=== PATIENT | female | born 1985 | race Two or more races ===

== ENCOUNTER 2020-12-27 05:29 | Emergency (ER) | payer MEDICARE, SELFPAY ==
[2020-12-27] VITALS (11 sets, daily range): BP systolic 103–109; BP diastolic 63–94; PULSE 67–95; RESP 16–20; TEMP 36.6; O2SAT 99; BMI 37.9
--- NOTE | 2020-12-27 05:38 | EX.ED.VIS.PS ---
HPI <Dr. Moises Odom MD - Last Filed: 12/27/20 06:55> HPI - Psych History of Present Illness Chief Complaint: Mental Health Informant: patient and EMS Narrative Narrative: EMS brings this patient in at 5:30 AM saying that the police have been dealing with her all night. She has been walking the local streets, she apparently is from [place] she is unsure of how she got to [place] but at one point states that she knocked on heshyam's door and [facility] and came back down in [place]. She then states that she did not have shoes, and because of this they would not let her in to the homeless halfway here in [place]; what type of homeless shelters do you have here and [place]? She denies using any drugs. She gets sidetracked very easily, when asked about medical problems that she has been diagnosed with she quickly changes the subject to something else. She is demanding food and water since she is homeless, in addition to a wheelchair and a service dog. She states she was vaccinated against COVID-19 with the Pfizer vaccine, the last one was more than 2 weeks ago. PFSH <Dr. Moises Odom MD - Last Filed: 12/27/20 06:55> PFS unable to obtain Home Medications NK 12/27/20 [History Last Taken Unknown] Allergy/AdvReac Type Severity Reaction Status Date / Time No Known Allergies Allergy Verified 12/27/20 05:44 unable to obtain Social History (Updated 12/27/20 @ 05:[address] Moises Odom MD) Smoking Status: Unknown if ever smoked substance use type: does not use ROS <Dr. Moises Odom MD - Last Filed: 12/27/20 06:55> ROS ED Constitutional Constitutional ED: Denies chills or fever(s) Eyes Eyes: Denies change in vision or diplopia ENT ENT ED: Denies rhinorrhea or sore throat Cardiovascular Cardiovascular: Denies chest pain or palpitations Respiratory/Chest Respiratory/Chest: Denies cough or dyspnea Gastrointestinal Gastrointestinal: Denies abdominal pain, diarrhea, nausea or vomiting Genitourinary Genitourinary ED: Denies dysuria or hematuria Musculoskeletal Musculoskeletal: Denies back pain or neck pain Integumentary Denies abscess or rash Neurologic Neurologic: Denies headache(s), paresthesias or weakness Psychiatric Psychiatric: Reports abnormal sleep pattern; Denies homicidal ideation, suicidal ideation or suicidal thoughts EXAM <Dr. Moises Odom MD - Last Filed: 12/27/20 06:55> Physical Exam Const Vital Signs: 12/27/20 05:31 12/27/20 06:37 12/27/20 07:26 Temperature 97.9 F Temperature Source Temporal Pulse Rate 76 Respiratory Rate 18 16 16 Blood Pressure 104/94 H Blood Pressure Mean 97 Pulse Ox 99 Oxygen Delivery Method Room Air Room Air 12/27/20 08:36 12/27/20 09:00 12/27/20 10:00 Temperature Temperature Source Pulse Rate Respiratory Rate 16 17 16 Blood Pressure Blood Pressure Mean Pulse Ox Oxygen Delivery Method Room Air Room Air Room Air 12/27/20 13:00 12/27/20 15:00 Temperature Temperature Source Pulse Rate 95 Respiratory Rate 18 18 Blood Pressure 109/84 H Blood Pressure Mean 92 Pulse Ox 99 Oxygen Delivery Method Room Air Positive well nourished and well developed General Appearance ED: well developed and NAD HEENT Reports moist mucous membranes normocephalic and atraumatic Eyes PERRL and EOMs intact bilaterally General Eye ED: Negative for scleral icterus Neck no lymphadenopathy and supple General: Negative for tenderness Thyroid: thyroid normal; Negative for tender Resp normal respiratory effort and clear to auscultation bilaterally Cardio no murmurs Rate: regular rate Rhythm: regular rhythm GI non-tender and non-distended Auscultation: normoactive bowel sounds Palpation: soft Back/Spine no CVA tenderness and normal ROM Extremity normal to inspection General Extremety ED: Negative for edema General Extremity: Negative for edema Neuro oriented x3, CN's II-XII intact bilaterally, no sensory deficits noted and gait normal Sensorium / Orientation: alert Motor Exam: strength 5/5 throughout Psych cooperative, activity/motor behavior normal and denies homicidal ideation Activity / Motor Behavior: appropriate eye contact Speech: loud Mood & Affect: labile affect Thought Process: flight of ideas, loose associations, tangential and other Don't leave me, nurses! I'm not ready to go to [facility]! Thought Content: suicidality and delusion(s) Delusional Thought Content Details: Positive for other (Abraham/Andraden) Insight: questionable Skin Lesions: no lesions Rashes: no rashes <Dr. Tu Marley, - Last Filed: 12/27/20 16:30> Physical Exam Const Vital Signs: 12/27/20 05:31 12/27/20 06:37 12/27/20 07:26 Temperature 97.9 F Temperature Source Temporal Pulse Rate 76 Respiratory Rate 18 16 16 Blood Pressure 104/94 H Blood Pressure Mean 97 Pulse Ox 99 Oxygen Delivery Method Room Air Room Air 12/27/20 08:36 12/27/20 09:00 12/27/20 10:00 Temperature Temperature Source Pulse Rate Respiratory Rate 16 17 16 Blood Pressure Blood Pressure Mean Pulse Ox Oxygen Delivery Method Room Air Room Air Room Air 12/27/20 13:00 12/27/20 15:00 Temperature Temperature Source Pulse Rate 95 Respiratory Rate 18 18 Blood Pressure 109/84 H Blood Pressure Mean 92 Pulse Ox 99 Oxygen Delivery Method Room Air MDM <Dr. Moises Odom MD - Last Filed: 12/27/20 06:55> MDM MDM Narrative Medical decision making narrative: Patient displayed thought processes that suggest she has a psychosis, however she is not able to provide us with any meaningful history nor do we have access to anything she has never been here before, however she is also being very demanding about getting access to halfway, water, food, since she was unable to get into the homeless halfway and she wants us to provide all of this for her. As I discussed with her she is welcome to as much water she wants, but she is here for medical/psychiatric evaluation. At this time her medical tests are unremarkable and her alcohol level is 0, she is medically cleared and we are discussing with crisis for further evaluation. At this point I have no evidence of her doing anything dangerous, but she seems disorganized and tangential enough that she may not be able to provide for her own basic needs, and I am seeking further evaluation from social work/crisis to see if acute psychiatric placement would be beneficial for her. Police/EMS did not pink slipped her with any other information prior to her arrival here in emergency department, just the police went out on multiple calls concerning her overnight. Pt checked out to AM ED physician pending crisis eval. Lab Data Attestation: I reviewed the patient's lab results. Labs: Laboratory Results - last 24 hr 12/27/20 12/27/20 12/27/20 06:00 06:00 06:00 WBC 13.9 H RBC 4.85 Hgb 14.8 Hct 44.5 MCV 91.8 MCH 30.5 MCHC 33.3 RDW Std Deviation 44.4 H RDW Coeff of Paco 13.1 Plt Count 341 MPV 10.0 Immature Gran % (Auto) 0.300 Neut % (Auto) 75.1 H Lymph % (Auto) 18.4 L Simpson % (Auto) 5.8 Eos % (Auto) 0.1 Baso % (Auto) 0.3 Absolute Neuts (auto) 10.4 H Absolute Lymphs (auto) 2.55 Nucleated RBC % 0 Sodium 139 Potassium 3.7 Chloride 106 Carbon Dioxide 25.0 Anion Gap 8 BUN 11 Creatinine 0.88 Estim Creat Clear Calc 77.79 Est GFR (MDRD) Af Amer 94 Est GFR (MDRD) Non-Af 78 BUN/Creatinine Ratio 12.5 Glucose 107 H Calcium 9.4 TSH 0.92 Serum , Qual Urine Color Urine Clarity Urine pH Ur Specific Scott Urine Protein Urine Glucose (UA) Urine Ketones Urine Occult Blood Urine Nitrite Urine Bilirubin Urine Urobilinogen Ur Leukocyte Esterase Urine RBC Urine WBC Ur Squamous Epith Cells Urine Bacteria Urine Mucus Urine Opiates Screen Urine Methadone Screen Ur Barbiturates Screen Ur Phencyclidine Scrn Ur Amphetamines Screen U Methamphetamin-MDMA U Benzodiazepines Scrn Urine Cocaine Screen U Cannabinoids Screen Ur Drug Screen Comment Ethyl Alcohol < 3.0 12/27/20 12/27/20 12/27/20 06:00 06:30 06:30 WBC RBC Hgb Hct MCV MCH MCHC RDW Std Deviation RDW Coeff of Paco Plt Count MPV Immature Gran % (Auto) Neut % (Auto) Lymph % (Auto) Simpson % (Auto) Eos % (Auto) Baso % (Auto) Absolute Neuts (auto) Absolute Lymphs (auto) Nucleated RBC % Sodium Potassium Chloride Carbon Dioxide Anion Gap BUN Creatinine Estim Creat Clear Calc Est GFR (MDRD) Af Amer Est GFR (MDRD) Non-Af BUN/Creatinine Ratio Glucose Calcium TSH Serum , Qual NEGATIVE Urine Color Yellow Urine Clarity Sl. Cloudy Urine pH 6.0 Ur Specific Scott 1.010 Urine Protein Negative Urine Glucose (UA) Normal Urine Ketones 15 H Urine Occult Blood Negative Urine Nitrite Negative Urine Bilirubin Negative Urine Urobilinogen Normal Ur Leukocyte Esterase Negative Urine RBC 0 SEEN Urine WBC 0 SEEN Ur Squamous Epith Cells 0-5 SEEN Urine Bacteria 1+ Urine Mucus 0 SEEN Urine Opiates Screen NEGATIVE Urine Methadone Screen NEGATIVE Ur Barbiturates Screen NEGATIVE Ur Phencyclidine Scrn NEGATIVE Ur Amphetamines Screen NEGATIVE U Methamphetamin-MDMA NEGATIVE U Benzodiazepines Scrn NEGATIVE Urine Cocaine Screen NEGATIVE U Cannabinoids Screen NEGATIVE Ur Drug Screen Comment Ethyl Alcohol <Dr. Tu Marley, DO - Last Filed: 12/27/20 16:30> [facility] MDM Narrative Medical decision making narrative: Care of the patient was turned over to me pending crisis evaluation. Crisis was in to evaluate the patient and feels the patient would benefit from inpatient treatment. They will attempt to find placement. EKG was ordered for clearance. On my interpretation, it shows normal sinus rhythm with a rate of 63. There are no acute ST or T wave changes. [place] interval, QRS interval, QTC intervals were all normal. [place] was normal. CBC shows a slight leukocytosis of 13.9. Basic metabolic profile was within normal limits. TSH was normal. Urine tox screen was negative. Urinalysis does not show any evidence of urinary tract infection. Serum alcohol level was normal. Serum hCG was negative. Patient is medically cleared for psychiatric placement. Patient was accepted at [facility]. Patient will be transferred there. Patient did become more agitated. Patient was given repeat doses of Geodon and a dose of Ativan. Patient is feeling better after this. Lab Data Attestation: I reviewed the patient's lab results. Labs: Laboratory Results - last 24 hr 12/27/20 12/27/20 12/27/20 06:00 06:00 06:00 WBC 13.9 H RBC 4.85 Hgb 14.8 Hct 44.5 MCV 91.8 MCH 30.5 MCHC 33.3 RDW Std Deviation 44.4 H RDW Coeff of Paco 13.1 Plt Count 341 MPV 10.0 Immature Gran % (Auto) 0.300 Neut % (Auto) 75.1 H Lymph % (Auto) 18.4 L Simpson % (Auto) 5.8 Eos % (Auto) 0.1 Baso % (Auto) 0.3 Absolute Neuts (auto) 10.4 H Absolute Lymphs (auto) 2.55 Nucleated RBC % 0 Sodium 139 Potassium 3.7 Chloride 106 Carbon Dioxide 25.0 Anion Gap 8 BUN 11 Creatinine 0.88 Estim Creat Clear Calc 77.79 Est GFR (MDRD) Af Amer 94 Est GFR (MDRD) Non-Af 78 BUN/Creatinine Ratio 12.5 Glucose 107 H Calcium 9.4 TSH 0.92 Serum , Qual Urine Color Urine Clarity Urine pH Ur Specific Scott Urine Protein Urine Glucose (UA) Urine Ketones Urine Occult Blood Urine Nitrite Urine Bilirubin Urine Urobilinogen Ur Leukocyte Esterase Urine RBC Urine WBC Ur Squamous Epith Cells Urine Bacteria Urine Mucus Urine Opiates Screen Urine Methadone Screen Ur Barbiturates Screen Ur Phencyclidine Scrn Ur Amphetamines Screen U Methamphetamin-MDMA U Benzodiazepines Scrn Urine Cocaine Screen U Cannabinoids Screen Ur Drug Screen Comment Ethyl Alcohol < 3.0 12/27/20 12/27/20 12/27/20 06:00 06:30 06:30 WBC RBC Hgb Hct MCV MCH MCHC RDW Std Deviation RDW Coeff of Paco Plt Count MPV Immature Gran % (Auto) Neut % (Auto) Lymph % (Auto) Simpson % (Auto) Eos % (Auto) Baso % (Auto) Absolute Neuts (auto) Absolute Lymphs (auto) Nucleated RBC % Sodium Potassium Chloride Carbon Dioxide Anion Gap BUN Creatinine Estim Creat Clear Calc Est GFR (MDRD) Af Amer Est GFR (MDRD) Non-Af BUN/Creatinine Ratio Glucose Calcium TSH Serum , Qual NEGATIVE Urine Color Yellow Urine Clarity Sl. Cloudy Urine pH 6.0 Ur Specific Scott 1.010 Urine Protein Negative Urine Glucose (UA) Normal Urine Ketones 15 H Urine Occult Blood Negative Urine Nitrite Negative Urine Bilirubin Negative Urine Urobilinogen Normal Ur Leukocyte Esterase Negative Urine RBC 0 SEEN Urine WBC 0 SEEN Ur Squamous Epith Cells 0-5 SEEN Urine Bacteria 1+ Urine Mucus 0 SEEN Urine Opiates Screen NEGATIVE Urine Methadone Screen NEGATIVE Ur Barbiturates Screen NEGATIVE Ur Phencyclidine Scrn NEGATIVE Ur Amphetamines Screen NEGATIVE U Methamphetamin-MDMA NEGATIVE U Benzodiazepines Scrn NEGATIVE Urine Cocaine Screen NEGATIVE U Cannabinoids Screen NEGATIVE Ur Drug Screen Comment Ethyl Alcohol EKG Initial EKG: Attestation: I personally reviewed and interpreted this EKG as follows: Interpretation: Sinus Rhythm (63) and No Acute Injury Pattern Discharge Plan Triage Chief Complaint: Mental Health ED Provider: Moises Odom Dx/Rx/DC Orders Clinical Impression: Psychosis Prescriptions: No Action NK RF: 0 Primary Care Provider: NOT,DEFINED Referrals: NOT,DEFINED [Primary Care Provider] - Disposition Disposition: Psychiatric Hospital or Unit Discharge Location: [facility]
[2020-12-27 06:10] LABS: Absolute Lymphocyte Count 2.55 X10^3/uL (0.83-4.51); Absolute Neutrophil Count 10.4 X10^3/uL (2.0-7.7); Basophil# 0.04 X10^3/uL; Basophil% 0.3 % (0-1); Eosinophil# 0.02 X10^3/uL; Eosinophils% 0.1 % (0-5); Hematocrit 44.5 % (37-47); Hemoglobin 14.8 g/dL (12.0-15.0); Lymphocyte # 2.55 X10^3/ul (0.83-4.51); Lymphocyte % 18.4 % (19-41); Mean Corp Hgb Conc 33.3 g/dL (32-36); Mean Corpuscular Hgb 30.5 pg (27.0-32.0); Mean Corpuscular Volume 91.8 fL (81-99); Monocyte# 0.81 X10^3/uL; Monocyte% 5.8 % (0-10); NRBC Flagged by Analyzer 0 % (0-5); Neutrophil # 10.41 X10^3/uL (2.7-7.7); Neutrophil % 75.1 % (47-70); Platelet Count 341 K/mm3 (150-450); RBC Distribution Width CV 13.1 % (11.6-14.6); RBC Distribution Width SD 44.4 fl (35.1-43.9); Red Blood Count 4.85 M/mm3 (4.2-5.4); White Blood Count 13.9 K/mm3 (4.4-11.0)
[2020-12-27 06:24] LABS: Internal QC Validated? YES +Cl - CLEAR BKGD; Pregnancy, Serum, hCG Quali. NEGATIVE Negative
[2020-12-27 06:28] LABS: Alcohol, Blood (Medical)-Serum < 3.0 mg/dL
[2020-12-27 06:35] LABS: Anion Gap 8 (5-15); BUN 11 mg/dL (7-18); BUN/Creat Ratio 12.5 RATIO (10-20); Calcium,Total 9.4 mg/dL (8.5-10.1); Chloride 106 mmol/L (98-107); Creatinine, Serum 0.88 mg/dL (0.55-1.02); EST Glomerular Filtration Rate 78 mL/min (>60); Est Glom Filt Rate - Afr Amer 94 mL/min (>60); Estimated Creatinine Clearance 77.79 ml/min; Glucose 107 mg/dL (74-106); Potassium 3.7 mmol/L (3.5-5.1); Sodium Level 139 mmol/L (136-145); Thyroid Stim Hormone (TSH) 0.92 uIU/mL (0.358-3.74)
[2020-12-27 06:41] LABS: Mucous, Urine 0 SEEN /hpf (<or=2+); Red Blood Cells-Urine 0 SEEN /hpf (0-5); White Blood Cells 0 SEEN /hpf (0-5)
[2020-12-27 06:42] LABS: Color, Urine Yellow (Yellow); Glucose, Dipstick Normal (Normal); Ketone-Dipstick 15 mg/dl (Negative); Leukocyte Esterase-Dipstick Negative /ul (Negative); Nitrite-Dipstick Negative (Negative); Occult Blood-Urine Negative /ul (Negative); Protein-Dipstick Negative (Negative); Urine Bilirubin Dipstick Negative (Negative); Urine Clarity Sl. Cloudy (Clear); Urine Urobilinogen Normal (Normal)
[2020-12-27 06:50] LABS: Bacteria 1+ /hpf (None Seen); Squamous Epithelial Cells - UA 0-5 SEEN /hpf (5-10)
--- NOTE | 2020-12-27 06:53 | ED.RN ---
crisis called back and is aware of patient
[2020-12-27 06:55] LABS: Amphetamine Urine VISTA NEGATIVE (<1000 ng/mL); Barbiturate Urine VISTA NEGATIVE (< 200 ng/mL); Benzodiazepine Urine VISTA NEGATIVE (< 200 ng/mL); Cocaine Urine VISTA NEGATIVE (< 300 ng/mL); Ecstacy Urine VISTA NEGATIVE (< 500 ng/mL); Methadone Urine VISTA NEGATIVE (< 300 ng/mL); PCP Urine VISTA NEGATIVE (< 25 ng/mL); THC Urine VISTA NEGATIVE (< 50 ng/mL); Vista UDS pH Range 6
[2020-12-27] MEDS: Ziprasidone IM 20 MG/ML VIAL IM (08:50)
--- NOTE | 2020-12-27 10:12 | NURSING ---
NO OLD EKGS
--- NOTE | 2020-12-27 10:21 | EKG12_ITS ---
Test Reason : MEDICAL CLEARANCE Blood Pressure : / mmHG Vent. Rate : 063 BPM Atrial Rate : 063 BPM P-R Int : 122 ms QRS Dur : 082 ms QT Int : 418 ms P-R-T Axes : 012 046 017 degrees QTc Int : 427 ms Normal sinus rhythm Nonspecific T wave abnormality Abnormal ECG Confirmed by LESLY RILEY, KATHYA ([id number]), video news editor FELIZ OCHOA ([id number]) on 01/02/2021 9:18:16 AM Referred By: MELBA/MEENAKSHI Confirmed By:KATHYA GRACE MD
--- NOTE | 2020-12-27 10:29 | ED.RN ---
[facility] called requesting EKG. Fax number [phone].
--- NOTE | 2020-12-27 11:31 | NURSING ---
FAXED EKG TO [facility]
--- NOTE | 2020-12-27 13:16 | CM.ED ---
JERI Note: [facility]ER[facility] and inquired about [facility] for patient. Patient has been referred to [facility]. Milady Talavera needs the EKG. JERI spoke with staff. They are working on getting the EKG. JERI was advised EKG done. JERI called Carli at [facility] and they had received EKG. JERI received call from Carli. Patient has been accepted. Accepting MD is Dr. Silvestre. RN to RN is [phone] and patient will be going to the adult unit. RN and manager urology updated. [place] slip [facility] for 4:30pm today. manager urology and RN updated. JERI also updated patient. JERI called Sherry [facility] and updated her regarding patient's placement at [facility]. Plan: [facility] for inpatiet psych Irene WALTERS
[2020-12-27] MEDS: Ziprasidone IM 20 MG/ML VIAL 10 MG IM ×2 (14:21→15:42)
--- NOTE | 2020-12-27 14:23 | ED.RN ---
pt GETTING WORKED UP AND COMING OUT TO DESK MULTIPLE TIMES AND BEING CONFUSED TALKING ABOUT WHAT SHE IS DOING HER.
[2020-12-27] MEDS: LORazepam 2 MG/ML Syringe IM (15:42)
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
== END 2020-12-27 18:22 ==
PROVIDERS: Emergency Provider Emergency Medicine
DX: F29 Unspecified psychosis not due to a substance or known physiological condition (principal); Z59.0 Homelessness
CPT/HCPCS: 80048; 80307; 81001; 82077; 84443; 84703; 85025; 87426; 93005; 96372; 99285; J3486